=== PATIENT | female | born 1965 | race Caucasian/White ===

== ENCOUNTER 2016-04-07 18:34 | Emergency (ER) | payer BC, OTHER ==
[2016-04-07 19:06] VITALS: BP 161/83
--- NOTE | 2016-04-07 19:37 | UC ---
General HPI - HPI Summary HPI Summary: The patient comes in today for: 1. "spitting up blood." Onset: Today--3 hours ago. Palliative/provocative: Nothing makes the bleeding better or worse. Quality: Paper-cut like sensation of the left side of her throat behind the tongue. She had this before but it seems to have gotten worse over the last 3 hours. Region: Behind the left tongue. Severity: 6/10 Time: Constant. Associated symptoms: Previous problems: She saw Dr. Ponce 4 weeks ago, and he told her that she has a stone in her salivary gland (left parotid?). She was told to use warm compresses and sour candies. Event: She was sucking on a candy today and suddenly tasted the blood. She spit out 10-12 dime sized spittle that had blood. Other oral problems (dental, gum, cysts, etc): None. LMP: one month ago. No cough or hemoptysis. * - History of Current Complaint Chief Complaint: UCGeneralIllness Stated Complaint: SPITTING UP BLOOD Time Seen by Provider: 04/07/16 19:02 Hx Obtained From: Patient - Allergy/Home Medications Allergies/Adverse Reactions: Allergies Allergy/AdvReac Type Severity Reaction Status Date / Time Penicillins Allergy Intermediate rash/swelling Verified 04/07/16 19:06 around eyes Home Medications: Home Medications Pantoprazole TAB (NF) [Protonix TAB (NF)] 40 mg PO DAILY 04/07/16 [History Confirmed 04/07/16] PMH/Surg Hx/FS Hx/Imm Hx Previously Healthy: No Endocrine History Of: Denies: Diabetes, Thyroid Disease, Hyperthyroidism, Hypothyroidism, Dyslipidemia Cardiovascular History Of: Denies: Cardiac Disorders, Hypertension, Pacemaker/ICD, Myocardial Infarction , Congestive Heart Failure, Atrial Fibrillation, Deep Vein Thrombosis, Bleeding Disorders Respiratory History Of: Denies: COPD, Asthma, Bronchitis, Pneumonia, Pulmonary Embolism GI/ History Of: Reports: Gastroesophageal Reflux Denies: Ulcer, Gastrointestinal Bleed, Gall Bladder Disease, Kidney Stones, Diverticulitis, Renal Disease, Urosepsis Neurological History Of: Denies: TIA, CVA, Dementia, Seizures, Migraine Psychological History Of: Denies: Anxiety, Depression, Bipolar Disorder, Schizophrenia, Post Traumatic Stress Disorder Cancer History Of: Denies: Lung Cancer, Colorectal Cancer, Breast Cancer, Prostate Cancer, Cervical Cancer Other History Of: Negative For: HIV, Hepatitis B, Hepatitis C, Anticoagulant Therapy - Surgical History Surgical History: Yes Surgery Procedure, Year, and Place: tonsillectomy. tubal - Family History Known Family History: Positive: Cardiac Disease, Hypertension, Other - no fmh of tetanus - Social History Occupation: Unemployed Alcohol Use: stopped drinking ETOH 2 months ago Substance Use Type: None Smoking Status (MU): Former Smoker When Did the Patient Quit Smoking/Using Tobacco: APPROX 30 YRS AGO - Immunization History Most Recent Influenza Vaccination: none Review of Systems Constitutional: Negative Skin: Negative Eyes: Negative ENT: Sore Throat Respiratory: Negative Cardiovascular: Negative Gastrointestinal: Negative Genitourinary: Negative All Other Systems Reviewed And Are Negative: Yes Physical Exam Triage Information Reviewed: Yes Appearance: Well-Appearing, No Pain Distress, Well-Nourished Vital Signs: Initial Vital Signs Temp 99.4 F 04/07/16 19:00 Pulse 70 04/07/16 19:00 Resp 17 04/07/16 19:00 BP 161/83 04/07/16 19:00 Pulse Ox 100 04/07/16 19:00 Vital Signs Reviewed: Yes Eyes: Positive: Conjunctiva Clear. Negative: Discharge ENT: Positive: Hearing grossly normal, Other: - No blood found in the oral cavity. With milking of the left parotid and left submandibular gland, no blood from the salivary duct opening. There are some missing teeth, but no bleeding from the gums. There is no leukoplakia or posterior bloody mucous.. Negative: Pharyngeal erythema, Nasal congestion, Nasal drainage, TM bulging, TM dull, TM red, Tonsillar swelling, Tonsillar exudate Dental: Negative: Gross Decay/Caries @, Dental Fracture @ Neck: Positive: Supple, Nontender, No Lymphadenopathy. Negative: Nuchal Rigidity Respiratory: Positive: Chest non-tender, Lungs clear, No respiratory distress, No accessory muscle use. Negative: Crackles, Wheezing Cardiovascular: Positive: RRR, No Murmur Abdomen Description: Positive: Nontender, No Organomegaly, Soft. Negative: Distended, Guarding Musculoskeletal: Positive: Strength Intact, ROM Intact, Other: - She has some discomfort to palpation of the left sternal border. Neurological: Positive: Alert, Muscle Tone Normal Psychological: Positive: Age Appropriate Behavior, Consolable Skin: Negative: rashes, breakdown Course/Dx - Course Course Of Treatment: Patient was told that I did not find any bleeding or pathology of the head and neck--only soreness to palpation of the left sternal border. She was told that I suspect that she had some bleeding from the stone in her left parotid gland duct. - Differential Dx - Multi-Symptom Provider Diagnoses: Oral bleeding, etiology unknown, resolved. Discharge - Discharge Plan Condition: Stable Disposition: HOME Referrals: Ana Rosa Gutierrez MD [Primary Care Provider] - Additional Instructions: Please follow up with your family ENT specialist early this next week for a re- evaluation. If you get worse between now and then, please be seen sooner by us or the ER.
== END 2016-04-07 19:58 | disposition home or self-care (01) ==
LOC: UCCORT 18:34
DX: R04.2 Hemoptysis (principal); Z88.0 Allergy status to penicillin; Z87.891 Personal history of nicotine dependence
CPT/HCPCS: 99211; G0463

== ENCOUNTER 2017-07-22 13:47 | Emergency (ER) | payer OTHER ==
[2017-07-22 14:56] VITALS: BP 158/94
--- NOTE | 2017-07-22 15:57 | UC ---
General HPI - HPI Summary HPI Summary: 51 yo female c/o tick on . Removed during triage with twister. Thinks tick attached yesterday. Not fully engorged, tick grossly appears intact. Some discomfort at tick site, prompting the discovery of a tick. General - no other complaints. No fever / chills. No sob / cp reported No gi issues. Denies known hx of tick bite in the past. - History of Current Complaint Chief Complaint: UCForeignBody Stated Complaint: TICK Time Seen by Provider: 07/22/17 15:56 Hx Obtained From: Patient Hx Last Menstrual Period: ~07/20/17 Pain Intensity: 2 - Allergy/Home Medications Allergies/Adverse Reactions: Allergies Allergy/AdvReac Type Severity Reaction Status Date / Time amoxicillin Allergy Facial Verified 07/22/17 14:49 Swelling and Itching PMH/Surg Hx/FS Hx/Imm Hx Previously Healthy: Yes Other History Of: Negative For: HIV, Hepatitis B, Hepatitis C, Anticoagulant Therapy - Surgical History Surgical History: Yes Surgery Procedure, Year, and Place: Salivary Gland Removed, 04/2016, [facility] ; tonsillectomy. tubal - Family History Known Family History: Positive: Cardiac Disease, Hypertension, Other - no fmh of tetanus - Social History Alcohol Use: None Substance Use Type: None Smoking Status (MU): Former Smoker Length of Time of Smoking/Using Tobacco: 1/2 PPD x & Years When Did the Patient Quit Smoking/Using Tobacco: ~1989 - Immunization History Most Recent Influenza Vaccination: none Most Recent Tetanus Shot: 10/20/15 Review of Systems Constitutional: Negative Skin: Other - see hpi Eyes: Negative ENT: Negative Respiratory: Negative Cardiovascular: Negative Gastrointestinal: Negative Genitourinary: Negative Motor: Negative Neurovascular: Negative Musculoskeletal: Negative Neurological: Negative Psychological: Negative Is Patient Immunocompromised?: No All Other Systems Reviewed And Are Negative: Yes Physical Exam Triage Information Reviewed: Yes Appearance: Well-Appearing, Well-Nourished Vital Signs: Initial Vital Signs Temp 99.6 F 07/22/17 14:45 Pulse 76 07/22/17 14:45 Resp 16 07/22/17 14:45 BP 158/94 07/22/17 14:45 Pulse Ox 100 07/22/17 14:45 Vital Signs Reviewed: Yes Eye Exam: Normal - grossly normal ENT Exam: Normal - grossly normal Neck exam: Normal Neck: Positive: Supple Respiratory Exam: Normal - rr normal, no tachypnea, no dyspnea Cardiovascular Exam: Normal - hr normal, non-diaphoretic. Good general color. Abdominal Exam: Normal - no complaints reported Musculoskeletal Exam: Normal - gait steady moves x 4 ext's Neurological Exam: Normal - grossly nonfoca Psychological Exam: Normal - conversing easily and appropriately Skin Exam: Other - L lower lat flank with tick site + redness, nonblanching approx 0.75 cm diam. No active bleeding or fluctuance appreciated. Course/Dx - Course Course Of Treatment: Tick is within 3 days, not fully engorged. However, exact timing is unclear. Furthermore, we are in an endemic tick ([place]) area. D/ w pt. Will send rx doxycycline 200mg po x 1. She will consider. Questions as posed answered to the best of my ability. - Differential Dx - Multi-Symptom Provider Diagnoses: Tick bite Discharge - Sign-Out/Discharge Documenting (check all that apply): Discharge/Admit/Transfer - Discharge Plan Condition: Stable Disposition: HOME Patient Education Materials: Tick Bite (ED) Referrals: Ana Rosa Gutierrez MD [Primary Care Provider] - Additional Instructions: Follow up primary care physician, per routine. Please seek medical attention for worse or new problems in the meantime. - Billing Disposition and Condition Condition: STABLE Disposition: HOME
== END 2017-07-22 16:30 | disposition home or self-care (01) ==
LOC: UCCORT 13:47
DX: S30.861A Insect bite (nonvenomous) of abdominal wall, initial encounter (principal); W57.XXXA Bitten or stung by nonvenomous insect and other nonvenomous arthropods, initial encounter; Y92.9 Unspecified place or not applicable; Z87.891 Personal history of nicotine dependence; Z88.3 Allergy status to other anti-infective agents
CPT/HCPCS: 99212; G0463

== ENCOUNTER 2018-05-03 08:07 | Emergency (ER) | payer SELFPAY ==
--- OUTSIDE RECORDS SUMMARY | 2018-05-03 08:23 | XMS REPORT | Continuity of Care Document ---
:1965 External Reference #:[id number] Author Name Laurence Ramos Care Team Providers Name Role Phone Ana Rosa Gutierrez MD Primary Care Physician Unavailable Payers Type Date Identification Numbers Payment Provider Subscriber Policy Number: [id number] [employer] Fatou Acevedo PayID: [id number] [address] [address] [place] [address] Advance Directives Description No Information Available Problems Date Description Provider Status Onset: 05/24/2015 Dysphagia Malik Patino M.D. Active Onset: 05/10/2015 Temporomandibular joint disorder Malik Patino M.D. Active Onset: 05/10/2015 Otalgia Malik Patino M.D. Active Family History Date Family Member(s) Problem(s) Comments General Diabetes General Heart Disease General Hypertension Social History Type Date Description Comments Sex Unknown Marital Status Lives With Occupation Homemaker Tobacco Use Start: Unknown End: Former Cigarette Smoker Unknown Tobacco Use Start: Unknown Never Smoked Cigars Tobacco Use Start: Unknown Never Smoked A Pipe Smokeless Tobacco Never Used Smokeless Tobacco ETOH Use Currently consumes alcohol ETOH Use glasss of wine every couple of days Tobacco Use Start: Unknown End: Patient is a former smoker Unknown Recreational Drug Use Denies Drug Use Exercise Type/Frequency Does not exercise Allergies, Adverse Reactions, Alerts Date Description Reaction Status Severity Comments 05/10/2015 Amoxicillin hives Active Medications Medication Date Status Form Strength Qnty SIG Indications Ordering Provider Hydrochlorothiazide 00/00/ Active Capsules 12.5mg 1 by Unknown 0000 mouth every day Ibuprofen 00/00/ Active Tablets 200mg 4 tabs Unknown 0000 by mouth every 8 hours take with food No Active Medications Unknown 2015 - 2018 Immunizations Description No Information Available Vital Signs Date Vital Result Comment 04/30/2018 9:08am Heart Rate 87 /min BP Systolic Sitting 144 mmHg BP Diastolic Sitting 90 mmHg Respiratory Rate 20 /min Pain Level 6 O2 % BldC Oximetry 98 % 09/20/2015 2:18pm Weight 148.00 lb Heart Rate 78 /min BP Systolic Sitting 122 mmHg BP Diastolic Sitting 80 mmHg 05/24/2015 1:42pm Heart Rate 76 /min BP Systolic Sitting 122 mmHg BP Diastolic Sitting 80 mmHg 05/10/2015 1:45pm Height 67 inches 5'7" Weight 148.00 lb Heart Rate 80 /min BP Systolic Sitting 126 mmHg BP Diastolic Sitting 88 mmHg BMI (Body Mass Index) 23.2 kg/m2 Results Description No Information Available Procedures Date Code Description Status 05/24/2015 57909 Fibroptic Laryngoscopy Completed 05/10/2015 36509 Tympanometry Completed Encounters Type Date Location Provider Dx Diagnosis Office Visit 09/20/2015 [facility] H[facility].02 Otalgia, left ear 2:15p [facility] [place] M26.60 Temporomandibular joint disorder, unspecified R13.10 Dysphagia, unspecified Office Visit 05/10/2015 1:45p [facility] H92.02 Otalgia, left [facility] M26.60 Temporomandibular joint disorder, unspecified Plan of Treatment Future Appointment(s):05/21/2018 8:45 am - Angel Garcia MD at [facility] AT Dupcdhjy74/05/2019 - Angel Garcia, [id number] Nondisplaced fracture of lateral malleolus of right fibula,Follow up:Follow up: 3 weeks
[2018-05-03 08:55] VITALS: BP 146/82
--- NOTE | 2018-05-03 10:16 | ED ---
Respiratory - HPI Summary HPI Summary: 52 yr old female with the complaint of runny nose, coughing, post nasal drip, left ear pain, fever, chills. Onset of symptoms 4 days ago. Symptoms are moderate. - History of Current Complaint Chief Complaint: UCGeneralIllness Stated Complaint: COUGH,CHILLS,FEVER Time Seen by Provider: 05/03/18 09:51 Pain Intensity: 4 - Allergy/Home Medications Allergies/Adverse Reactions: Allergies Allergy/AdvReac Type Severity Reaction Status Date / Time amoxicillin Allergy Facial Verified 05/03/18 08:53 Swelling and Itching PMH/Surg Hx/FS Hx/Imm Hx Endocrine/Hematology History: Denies: Hx Anticoagulant Therapy, Hx Diabetes, Hx Thyroid Disease Cardiovascular History: Reports: Hx Hypertension Denies: Hx Congestive Heart Failure, Hx Deep Vein Thrombosis, Hx Myocardial Infarction, Hx Pacemaker/ICD Respiratory History: Denies: Hx Asthma, Hx Chronic Obstructive Pulmonary Disease (COPD), Hx Lung Cancer, Hx Pneumonia, Hx Pulmonary Embolism GI History: Denies: Hx Gall Bladder Disease, Hx Gastrointestinal Bleed, Hx Ulcer, Hx Urosepsis History: Denies: Hx Kidney Stones, Hx Renal Disease Neurological History: Denies: Hx Dementia, Hx Migraine, Hx Seizures, Hx Transient Ischemic Attacks (TIA) Psychiatric History: Denies: Hx Anxiety, Hx Depression, Hx Schizophrenia, Hx Bipolar Disorder - Cancer History Hx Chemotherapy: No Hx Radiation Therapy: No - Surgical History Surgery Procedure, Year, and Place: Salivary Gland Removed, 04/2016, [facility] ; tonsillectomy. tubal Infectious Disease History: No Infectious Disease History: Denies: Traveled Outside the [place] in Last 30 Days - Family History Known Family History: Positive: Cardiac Disease, Hypertension, Other - no fmh of tetanus - Social History Alcohol Use: Occasionally Substance Use Type: Reports: None Smoking Status (MU): Former Smoker Length of Time of Smoking/Using Tobacco: 1/2 PPD x & Years Review of Systems Positive: Fever, Chills Positive: Sore Throat, Ear Ache, Nasal Discharge Positive: Cough All Other Systems Reviewed And Are Negative: Yes Physical Exam Triage Information Reviewed: Yes Vital Signs On Initial Exam: Initial Vitals Temp Pulse Resp BP Pulse Ox 97.7 F 86 16 146/82 99 05/03/18 08:51 05/03/18 08:51 05/03/18 08:51 05/03/18 08:51 05/03/18 08:51 Vital Signs Reviewed: Yes Appearance: Positive: Well-Appearing, No Pain Distress Skin: Positive: Warm, Skin Color Reflects Adequate Perfusion Head/Face: Positive: Normal Head/Face Inspection Eyes: Positive: EOMI ENT: Positive: Pharyngeal erythema, Nasal congestion, Nasal drainage, TM red - left with erythema and effusion Neck: Positive: Nontender Respiratory/Lung Sounds: Positive: Clear to Auscultation, Breath Sounds Present Cardiovascular: Positive: RRR. Negative: Murmur Abdomen Description: Negative: Distended Musculoskeletal: Positive: Strength/ROM Intact Neurological: Positive: Sensory/Motor Intact, Alert, Oriented to Person Place, Time, CN Intact II-III Psychiatric: Positive: Normal Diagnostics - Vital Signs Vital Signs Temp Pulse Resp BP Pulse Ox 05/03/18 08:51 97.7 F 86 16 146/82 99 - Laboratory Lab Statement: Any lab studies that have been ordered have been reviewed, and results considered in the medical decision making process. Disposition - Course Course Of Treatment: 52 yr old with otitis media, and URI. Rx with biaxin, tessalon and albuterol MDI - Diagnoses Provider Diagnoses: Otitis media, Upper respiratory infection, Hypertension Discharge - Sign-Out/Discharge Documenting (check all that apply): Patient Departure All imaging exams completed and their final reports reviewed: No Studies - Discharge Plan Condition: Good Disposition: HOME Prescriptions: Albuterol HFA INHALER* [Ventolin HFA Inhaler*] 1 - 2 puff INH Q6H PRN #1 mdi PRN Reason: Cough Benzonatate CAP* [Tessalon 100 MG CAP*] 100 mg PO TID #10 cap Clarithromycin TAB* [Biaxin 500 MG TAB*] 500 mg PO BID #20 tab Patient Education Materials: Ear Infection (ED), Upper Respiratory Infection ( ED), Hypertension (ED) Referrals: Ana Rosa Gutierrez MD [Primary Care Provider] - 2 Days - Billing Disposition and Condition Condition: GOOD Disposition: Home
== END 2018-05-03 10:20 | disposition home or self-care (01) ==
LOC: UCCORT 08:07
DX: J06.9 Acute upper respiratory infection, unspecified (principal); H66.92 Otitis media, unspecified, left ear; I10 Essential (primary) hypertension; Z88.0 Allergy status to penicillin; Z87.891 Personal history of nicotine dependence
CPT/HCPCS: 99212; G0463